=== PATIENT | female | born 1960 | race Caucasian/White ===

== ENCOUNTER 2018-09-26 11:24 | Outpatient (CLI) | payer OTHER, SELFPAY ==
--- NOTE | 2018-09-26 09:48 | DI.RAD_ITS ---
SYMPTOM/DIAGNOSIS: PAIN RIGHT KNEE: Two views were obtained. There is mild narrowing of the medial tibiofemoral cartilaginous joint space. Some flattening of the lateral femoral condyle is noted. There is marginal osteophyte formation of the bones of the knee. IMPRESSION: Mild to moderate DJD, most prominent involving medial tibiofemoral joint.
== END 2018-09-26 11:44 ==
PROVIDERS: Visit Provider Orthopaedic Surgery
DX: M25.561 Pain in right knee (principal); M17.11 Unilateral primary osteoarthritis, right knee
CPT/HCPCS: 73560